=== PATIENT | male | born 1955 | race Caucasian/White ===

== ENCOUNTER 2017-10-23 06:10 | Day surgery (SDC) | payer OTHER ==
[2017-10-23] MEDS ORDERED: SIMETHICONE 40 MG/0.6 ML ML ONE (06:43)
[2017-10-23] MEDS: MIDAZOLAM HCL 5 MG/5 ML VIAL ONE ×4 (07:46→07:54)
[2017-10-23] MEDS: fentaNYL CITRATE/PF 100 MCG/2 ML AMP ONE ×3 (07:46→07:54)
[2017-10-23] MEDS ORDERED: DIPHENHYDRAMINE INJ 50 MG/ML VIAL ONE (09:19)
[2017-10-23 09:22] VITALS: BP_SYST 136
== END 2017-10-23 09:00 | disposition home or self-care (01) ==
LOC: SDS 06:10
PROVIDERS: ATTEND Internal Medicine Gastroenterology
DX: Z12.11 Encounter for screening for malignant neoplasm of colon (principal); K57.30 Diverticulosis of large intestine without perforation or abscess without bleeding; K64.8 Other hemorrhoids; I10 Essential (primary) hypertension; Z68.31 Body mass index [BMI] 31.0-31.9, adult; Z80.0 Family history of malignant neoplasm of digestive organs
CPT/HCPCS: 45378; J1200; J2250; J3010